=== PATIENT | male | born 1985 | race African-American/Black ===

== ENCOUNTER 2025-07-10 20:36 | Emergency (ER) | payer OTHER ==
[~2025-07-10] VITALS: Ht 167.6 cm; Wt 65.9 kg
[~2025-07-10 20:36] MED LIST: AMOX125T PO; IBUP-2340 PO
[2025-07-10 22:53] LABS: PLATELET COUNT (AUTO) 365 K/uL (150-450); RED BLOOD CELL COUNT(AUTO) 4.50 MIL/uL (4.50-5.90); RED CELL DISTRIBUTION WIDTH 13.1 % (11.5-14.5); WHITE BLOOD COUNT (AUTO) 5.5 K/uL (4.5-11.0)
[2025-07-10 23:02] LABS: CALCIUM, TOTAL 8.9 mg/dL (8.8-10.5); CREATININE 1.10 mg/dL (0.60-1.30); GLOMERULAR FILTR. RATE CALC > 60 mL/min (>60); GLUCOSE,RANDOM 73 mg/dL (70-110); SODIUM SERUM 137 mmol/L (136-145); UREA NITROGEN, BLOOD 13 mg/dL (7-18)
[2025-07-10 23:13] LABS: TROPONIN I-HIGH SENSITIVITY 4 ng/L (<76)
[2025-07-10 23:42] VITALS: BP 125/75; PULSE 74; RESP 16; TEMP 98.3; O2SAT 99
== END 2025-07-11 00:04 | disposition home or self-care (01) ==
LOC: EMS 20:36
DX: R04.0 Epistaxis (principal); J45.909 Unspecified asthma, uncomplicated; E86.0 Dehydration; R53.1 Weakness; R53.83 Other fatigue; F12.90 Cannabis use, unspecified, uncomplicated; F14.90 Cocaine use, unspecified, uncomplicated; F17.210 Nicotine dependence, cigarettes, uncomplicated; Z98.890 Other specified postprocedural states; Z79.1 Long term (current) use of non-steroidal anti-inflammatories (NSAID)
CPT/HCPCS: 80048; 84484; 85025; 93005; 99284